=== PATIENT | male | born 1950 | race Caucasian/White ===

== ENCOUNTER 2020-12-19 16:47 | Emergency (ER) | payer OTHER, MEDICARE ==
[~2020-12-19] VITALS: Ht 172.7 cm; Wt 70.3 kg
[2020-12-19] MEDS ORDERED: GABAPENTIN300 MG PO (17:04)
[2020-12-19] MEDS ORDERED: FLOMAX0.4 MG PO (17:04)
[2020-12-19] MEDS ORDERED: CRESTOR10 MG PO (17:04)
[2020-12-19] MEDS ORDERED: BAYER CHEWABLE81 MG PO (17:05)
--- NOTE | 2020-12-21 11:31 | EKG ---
[facility] [address] [place] [address] Signed Sinus rhythm with 1st degree AV block with premature atrial complexes Septal infarct , age undetermined Abnormal ECG No previous ECGs available Confirmed by YOUSUF SCHWARTZ MD ([id number]) on 12/21/2020 11:30:59 AM Electronically Signed By: YOUSUF SCHWARTZ MD 12/21/20 1131 PATIENT NAME: BELLEKANIKA SWENSON Electrocardiogram DATE OF : 50 PHYSICIAN: YOUSUF SCHWARTZ MD REPORT #: [id number] REPORT IS CONFIDENTIAL AND NOT TO BE RELEASED WITHOUT AUTHORIZATION
== END 2020-12-19 19:18 | disposition home or self-care (01) ==
LOC: ED 16:47
DX: I49.1 Atrial premature depolarization (principal)
CPT/HCPCS: 71045; 80053; 83735; 84484; 85025; 93005; 93010; 99285-25